=== PATIENT | female | born 1950 | race Caucasian/White ===

== ENCOUNTER 2017-06-28 08:45 | Day surgery (SDC) | payer MEDICARE, BC ==
--- NOTE | 2017-06-28 07:29 | History and Physical Report ---
DATE: 06/27/2017. CHIEF COMPLAINT AND HISTORY OF CHIEF COMPLAINT: This patient presents with a history of multiple spinal surgeries. She is here for a spinal opioid infusion trial with an implanted catheter with hydromorphone due to the failure of all other conservative therapies. No other surgeries were suggested following surgical evaluation with Dr. Lira at [facility], and she was referred for a pump implant. Diagnostics show subluxation at L3-4 and 4-5, multiple laminectomies, and spondylitic change. PAST MEDICAL HISTORY: Hypertension, chronic renal disease. PAST SURGICAL HISTORY: Lumbar spinal surgery, gastric surgery. EMPLOYMENT STATUS: Retired and on disability. MEDICATIONS ON ADMISSION: List to be provided. ALLERGIES: Nonsteroidal anti-inflammatories, sulfa, Inderal, Ancef. Further list to be provided. REVIEW OF SYSTEMS: The patient seems appropriate and in no acute distress. The remainder of the systems review shows degenerative arthritis, headaches, difficulty sleeping. SOCIAL HISTORY: Caffeine. FAMILY HISTORY: Noncontributory. PHYSICAL EXAMINATION: General: Height and weight are not available. Vital Signs: Not available. Musculoskeletal: Current examination shows diffuse tenderness throughout the lumbar spine. Range of motion does produce pain throughout the low back and extending into both lower extremities. Motor and sensory field function is essentially intact. There is a pain pattern which is following both an L4 and L5 distribution into both legs. There are mild motor function deficits and weakness in both legs. Ambulation: Assistive device utilized. Neurologic: Cranial nerves are intact. IMPRESSION: 1. POSTLUMBAR LAMINECTOMY SYNDROME, ICD-10 CODE M96.1. 2. LUMBAR RADICULITIS, ICD-10 CODE M54.16 AND M54.17. PLAN: This patient is here for an implanted spinal catheter infusion trial with hydromorphone or Dilaudid. The patient understands that we will be surgically implanting a spinal catheter. This technique can help minimize the potential for a spinal headache. It could also reduce the number of needle placements into the spine necessary to a single technique in a single procedure. The implanted catheter will be externalized by a second catheter component to an external pump where we will infuse spinal opioids over a two- week period. During this two-week period, or 14 days, three increases will be planned and scheduled if necessary. During the trial an epidural blood patch will be performed to also help control the incidence of a spinal headache. We will consider an overnight stay; although the patient may be a candidate for discharge same day if she is stable. The potential risks, side effects, and complications include nerve root injury, spinal cord injury, paralysis, and spinal headache and have been discussed and reviewed. Information was provided through the railroad surveyor, [employer]. This includes a book that fully explains the procedures and a link to the web site which also discusses the procedure, side effects, and complications. All questions were answered. The patient understands and has consented. JOB NUMBER: [id number] cc: Wendy Cardona M.D. MTDD
[~2017-06-28 08:45] MED LIST: ACETAMINOPHEN 1,000 MG/100 ML BTL IV ONE; CLINDAMYCIN 600MG/50ML PREMIX 600 MG/50 ML BAG IVPB ONE; FAMOTIDINE 20MG TABLET PO ONE; HYDROMORPHONE PF 2MG/ML AMP 0.008 MG in 0.9 % SODIUM CHLORIDE 10ML VIA 0.996 ML IV ONE; HYDROMORPHONE PF 2MG/ML AMP 4 MG in 0.9 % SODIUM CHLORIDE 500ML 498 ML IV ONE; MECLIZINE 25 MG TABLET PO ONE; METOCLOPRAMIDE 10 MG TABLET PO ONE
[2017-06-28] MEDS ORDERED: LIDOCAINE 2% MDV (20MG/ML) 20ML VIAL IV ONE (08:46)
[2017-06-28] MEDS ORDERED: BUPIVACAINE 0.5% W/EPI MPF 30 ML VIAL IVP ONE (08:46)
[2017-06-28] MEDS ORDERED: PROPOFOL 10 MG/ML VIAL IV ONE (08:46)
[2017-06-28] MEDS ORDERED: LIDOCAINE 1% W/EPI 1:200,000 MPF 30ML SQ ONE (08:46)
[2017-06-28] MEDS ORDERED: MIDAZOLAM HCL 2MG/2ML VIAL IV ONE (08:46)
[2017-06-28] MEDS ORDERED: FENTANYL PF 100MCG/2ML VIAL IV ONE ×2 (08:46)
[2017-06-28] MEDS ORDERED: DIPHENHYDRAMINE HCL IV 50 MG/ML VIAL IVP PRN ×2 (12:43)
[2017-06-28] MEDS ORDERED: OXYCODONE/APAP 10MG-325MG TABLET PO PRN (12:43)
[2017-06-28] MEDS ORDERED: SENNOSIDES/DOCUSATE SODIUM UD CAPSULE PO PRN ×2 (12:43)
[2017-06-28] MEDS ORDERED: METOCLOPRAMIDE 10 MG TABLET PO PRN (12:43)
[2017-06-28] MEDS ORDERED: METOCLOPRAMIDE HCL 10 MG/2 ML VIAL IVP PRN (12:43)
[2017-06-28] MEDS ORDERED: NALOXONE 0.4 MG/1 ML VIAL IVP PRN (12:43)
[2017-06-28] MEDS ORDERED: TEMAZEPAM 15 MG CAPSULE PO PRN ×2 (12:43)
[2017-06-28] MEDS ORDERED: HYDROMORPHONE HCL 2 MG/ML VIAL IM PRN ×2 (12:43→12:44)
[2017-06-28] MEDS ORDERED: AL HYDROX/MAG HYDROX 30ML UD PO PRN (12:43)
[2017-06-28] MEDS ORDERED: ACETAMINOPHEN 325 MG TAB PO PRN ×2 (12:43)
[2017-06-28] MEDS ORDERED: HYDROCODONE/APAP 7.5/325 15ML ELIXIR PO PRN ×2 (12:48)
[2017-06-28] MEDS ORDERED: DIPHENHYDRAMINE ELIXIR 25MG/10ML UD PO PRN ×2 (12:49)
[2017-06-28] MEDS ORDERED: [UNRECOGNIZED DRUG - OTHER] PO PRN (13:13)
[2017-06-28] MEDS ORDERED: PROMETHAZINE HCL 25 MG TABLET PO PRN (15:29)
--- NOTE | 2017-06-28 16:35 | Operative Note - Ferro ---
DATE OF SURGERY: 06/28/17 PREOPERATIVE DIAGNOSES: 1. POST LUMBAR LAMINECTOMY SYNDROME, ICD-10 CODE = M96.1. 2. LUMBAR RADICULITIS, ICD-10 CODE = M54.16 AND M54.17. OPERATION: 1. FLUOROSCOPICALLY-GUIDED SPINAL ACCESS AT L3-4. PLACEMENT OF THIN-WALLED SPINAL CATHETER T11. 2. DIAGNOSTIC MYELOGRAPHY WITH RADIOLOGIC SUPERVISION AND INTERPRETATION. 3. SPINAL OPIOID BOLUS HYDROMORPHONE 0.002 MG SPINAL SPACE. 4. INCISION, SUBCUTANEOUS DISSECTION, AND ANCHORING OF SPINAL CATHETER TO SUPRASPINOUS FASCIA WITH AN ANCHOR AND NONABSORBABLE SUTURE. 5. INCISION, SUBCUTANEOUS DISSECTION, AND CREATION OF SMALL POUCH RIGHT POSTERIOR GLUTEAL ROLDAN ULTIMATELY FOR PUMP. 6. TUNNELING BETWEEN MIDLINE POUCH INTO POSTERIOR POUCH TUNNELING SPINAL CATHETER INTO POUCH. SPINAL CATHETER RESECTED, INTERFACED WITH SECOND CATHETER COMPONENT BY WAY OF A CONNECTOR. 7. TUNNELING SECONDARY CATHETER COMPONENT SUPERIOR 6 CM EXITING SKIN. INTERFACE EXTERNAL CATHETER WITH PUMP SET TO DELIVER HYDROMORPHONE AT 0.04 MG A DAY. 8. CLOSURE OF MIDLINE INCISION, VICRYL FOR FASCIA, RUNNING SUBCUTICULAR VICRYL FOR SKIN. CLOSURE OF POSTERIOR POUCH NYLON SUTURE. 9. EPIDURAL BLOOD PATCH AT L5-S1. 20 ML AUTOLOGOUS BLOOD DRAWN STERILE TECHNIQUE , LEFT ANTECUBITAL. SURGEON: CLARE ROSALES D.O. ANESTHESIA: LOCAL SEDATION. ANESTHESIA PROVIDER: BETTY WHITTEN CRNA. INDICATION: This patient presents with a history of a post laminectomy radiculitis. Due to the failure of therapy, she has been referred to this facility for a spinal infusion trial with Hydromorphone using an implanted catheter technique. PROCEDURE: Intravenous line, vital sign monitoring, IV sedation, prepped and draped sterile technique. The spinal interspace with the patient prone. Spinal interspace at L3-4 was marked, infiltrated, and a 20-gauge spinal needle paramedian approach was used to gain entry into the spinal space on AP and lateral imaging. With CSF through the needle, a thin-walled spinal catheter was advanced and positioned T11. Catheter was clamped. The skin above and below the needle infiltrated, incision made, and subcutaneous dissection was conducted to the supraspinous fascia. The needle was removed and the catheter was anchored to the supraspinous fascia with an anchor and nonabsorbable suture. CSF flow continued to come through the catheter once the anchor was in place. The catheter was then clamped to stop CSF leak. With the catheter anchored, 1 mL of contrast was injected and a myelogram flow was identified confirming catheter position and appropriate flow characteristics. There was no pain or response on the part of the patient. The catheter was again clamped. 1 mL of Hydromorphone at 0.002 mg was given into the spinal space and the catheter was clamped a second time. At the right posterior gluteal margin, a site by the patient ultimately picked for the pump itself, was infiltrated, incision made, and subcutaneous dissection was conducted to form a small pouch. The spinal catheter was then tunneled into this posterior pouch. The catheter was then interfaced with a second catheter component by way of a connector. The second catheter component was tunneled superior from this pouch exiting the skin. This external catheter was then interfaced with an external infusion pump, which was set to deliver Hydromorphone at 0.04 mg a day. The midline incision was closed Vicryl for fascia, running subcuticular Vicryl for skin. The posterior gluteal incision was closed with a nylon suture. At L4-5, the epidural space could not be accessed. At L5-S1, using an 18-gauge Tuohy needle with [id number], the epidural space was accessed. 20 mL of autologous blood drawn sterile technique from the left antecubital, placed onto the field maintaining sterility , then an epidural blood patch was performed at this level with this blood. Dressing was applied securing the catheter and all connections under sterile dressing. Dermabond then placed over the midline incision. She was transported to the Recovery Room flat, pillow under head and knees, stable, showing no side- effects from, the procedure or the sedation. In the Recovery Room, the patient had functionality of all extremities and showed no indications of complications. She was monitored until stable, transported to the Floor for observation, and she will be kept flat for four hours, slowly elevated for one, but will be kept overnight for observation and discharged in the morning. DISCHARGE INSTRUCTIONS IN THE MORNIN. Sites to remain clean and dry. No showering or bathing in any way that would disrupt dressings. If it happens, contact the clinic. 2. Standard medications resumed including the antibiotic, oral, because of a gastric bypass, that she will tolerate. Pharmacy will help in a selection of the oral antibiotic for the next 10-14 days; appropriate for the procedure. 3. Spinal opioid side-effects; respiratory depression, nausea, vomiting, constipation, urinary retention, light-headedness, or rash have all been discussed and reviewed. Should they happen, the patient can contact the clinic or she has been instructed on how to turn off the pump. The trial was scheduled to run 12-14 days. During this period of time, three increases will be scheduled to increase the infusion to the desired level to control pain. All other instructions have been provided. The dressings will stay dry. No showering or bathing in any way that would compromise dressings. The externalized catheter should be monitored carefully to prevent any dislodge or separation from the external pump. She will be seen in the office in 3-5 days. All other instructions provided, numbers to contact, problems given. She was then prepared for discharge in the morning. cc: Dr. Chris Lira at [facility] Dr. Frank Kelly JOB NUMBER: [id number] MTDD
[2017-06-28] MEDS: OXYCODONE/APAP 10MG-325MG TABLET PO PRN ×2 (16:54→21:37)
[2017-06-28] MEDS: CLINDAMYCIN 600MG/50ML PREMIX 600 MG/50 ML BAG IVPB SCH (18:43)
[2017-06-28] MEDS ORDERED: AMITRIPTYLINE 10 MG TAB PO SCH (22:00)
[2017-06-28] MEDS ORDERED: TRAZODONE 50 MG TABLET PO SCH (22:00)
[2017-06-28] MEDS ORDERED: LISINOPRIL 10 MG TABLET PO SCH (22:00)
[2017-06-29] MEDS: CLINDAMYCIN 600MG/50ML PREMIX 600 MG/50 ML BAG IVPB SCH ×2 (02:13→09:31)
[2017-06-29] MEDS: 0.9 % SODIUM CHLORIDE 1000ML 1,000 ML IV SCH ×2 (05:40→09:33)
[2017-06-29] MEDS: OXYCODONE/APAP 10MG-325MG TABLET PO PRN (06:40)
[2017-06-29] MEDS ORDERED: LEVOTHYROXINE SODIUM 75 MCG TABLET PO SCH (07:00)
[2017-06-29] MEDS ORDERED: SERTRALINE HCL 50 MG TABLET PO SCH (10:00)
[2017-06-29] MEDS ORDERED: AMLODIPINE BESYLATE 5MG TAB PO SCH (10:00)
--- NOTE | 2017-06-29 13:05 | RADIOLOGY REPORT ---
EXAM: THORACOLUMBAR SPINE, ONE VIEW HISTORY: PAIN PUMP TRIAL. TECHNIQUE: An AP view of the spine was obtained including the lumbar portion and the lower thoracic portion. Comparison: Same day intraoperative radiographs of the lumbar spine. FINDINGS: There are five non-rib bearing lumbar type vertebra. There is normal bone mineralization. Minor levoconvex curvature is noted centered at the L3 level. Multilevel degenerative disk/end plate changes are present most pronounced at the lower lumbar levels where they are mild to moderate in degree. An intraspinal catheter is in place appearing to extend into the spinal canal at the L3-L4 level and the catheter tip projects at the T11 level. Surgical clips project at the level of the right hemipelvis and right upper quadrant. IMPRESSION: 1. SINGLE INTRASPINAL CATHETER IN PLACE APPEARING TO ENTER THE SPINAL CANAL AT THE L3-L4 LEVEL AND THE CATHETER TIP PROJECTS AT THE T11 LEVEL RIGHT OF MIDLINE. 2. MULTILEVEL DEGENERATIVE CHANGES. 3. NOT MENTIONED ABOVE IS A ROUNDED CALCIFIC DENSITY PROJECTING AT THE LEFT PARAVERTEBRAL L2 LEVEL. THIS MEASURES 5 MM. THIS CANNOT BE FURTHER CHARACTERIZED. A URETERAL CALCULUS WOULD BE DIFFICULT TO EXCLUDE. JOB NUMBER: [id number] [facility]
== END 2017-06-29 10:40 | disposition home or self-care (01) ==
LOC: SUR 08:45 → MEDSURG 12:13 → SUR 06-29 10:40
PROVIDERS: ATTEND Pain Medicine Interventional Pain Medicine
DX: M96.1 Postlaminectomy syndrome, not elsewhere classified (principal); M54.16 Radiculopathy, lumbar region; M54.17 Radiculopathy, lumbosacral region; E03.9 Hypothyroidism, unspecified; I10 Essential (primary) hypertension; Z79.01 Long term (current) use of anticoagulants; N18.5 Chronic kidney disease, stage 5; Z99.2 Dependence on renal dialysis
CPT/HCPCS: 62350; 00630; 85002; 72020; 94760; Q9967; J3010; J3490; J1170; J7040

== ENCOUNTER 2017-07-12 13:12 | Day surgery (SDC) | payer MEDICARE, BC ==
--- NOTE | 2017-07-12 09:35 | History and Physical - Ferro ---
CHIEF COMPLAINT/HISTORY OF CHIEF COMPLAINT: This patient presents with a history of post laminectomy radiculitis with an implanted spinal catheter infusion trial with Hydromorphone. Although the patient achieved significant results she developed a rash approximately two to three days into the trial, this was discontinued and despite the rash accelerated and worsening her primary physician recommended that this was opioid related and the device should be removed. PAST MEDICAL HISTORY: Hypertension and chronic renal disease with dialysis. PAST SURGICAL HISTORY: Lumbar spinal surgery and gastric surgery. EMPLOYMENT STATUS: Disability. MEDICATIONS ON ADMISSION: List to be provided. ALLERGIES: NONSTEROIDAL INFLAMMATORIES, SULFA, INDERAL, AND ANCEF. FAMILY/PSYCHOSOCIAL HISTORY: Social history - Positive for caffeine. Family history - Noncontributory. SYSTEMS REVIEW: The patient is appropriate in no acute distress. The remainder of the systems review is positive for degenerative arthritis and difficulty sleeping. PHYSICAL EXAMINATION: Height is 5'4", weight is 150. No vital signs. HEENT: Within normal limits. LUNGS: Clear. HEART: Regular rate and rhythm. MUSCULOSKELETAL: Diffuse maculopapular rash identified total body. Dressings for the implanted catheter trial are intact. NEUROLOGIC: Cranial nerves are intact. Primary pain pattern bilateral lower extremity radiculitis. IMPRESSION: 1. POST LUMBAR LAMINECTOMY SYNDROME, ICD-10 CODE M96.1. 2. LUMBAR RADICULITIS, ICD-10 CODE M54.16 AND M54.17. 3. IMPLANTED SPINAL CATHETER INFUSION TRIAL WITH HYDROMORPHONE. PLAN: Pain control is excellent with a rash although I do not I believe it was related to the opioid the current recommendation has been to remove the device. She is here for removal and termination of the trial. Once the system is removed and the rash is controlled we will re-evaluate repeating the trial. The procedure will be considered outpatient, no overnight stay should be necessary. JOB NUMBER: [id number] MTDD
[~2017-07-12 13:12] MED LIST changes: -HYDROMORPHONE PF 2MG/ML AMP 0.008 MG in 0.9 % SODIUM CHLORIDE 10ML VIA 0.996 ML IV ONE; -HYDROMORPHONE PF 2MG/ML AMP 4 MG in 0.9 % SODIUM CHLORIDE 500ML 498 ML IV ONE
[2017-07-12] MEDS ORDERED: FENTANYL PF 100MCG/2ML VIAL IV ONE (13:13)
[2017-07-12] MEDS ORDERED: MIDAZOLAM HCL 2MG/2ML VIAL IV ONE (13:13)
[2017-07-12] MEDS ORDERED: LIDOCAINE 1% W/EPI 1:200,000 MPF 30ML SQ ONE (13:13)
[2017-07-12] MEDS ORDERED: BUPIVACAINE 0.5% W/EPI MPF 30 ML VIAL IVP ONE (13:13)
[2017-07-12] MEDS ORDERED: CLINDAMYCIN (PEDIATRIC DOSING) 150 MG/ML VIAL IVPB ONE ×2 (13:13)
[2017-07-12] MEDS ORDERED: PROPOFOL 10 MG/ML VIAL IV ONE (13:13)
[2017-07-12] MEDS ORDERED: LIDOCAINE 2% MDV (20MG/ML) 20ML VIAL IV ONE (13:13)
[2017-07-12 13:35] LABS: CREATININE 3.2 mg/dL (0.5-0.9)
--- NOTE | 2017-07-13 16:19 | Operative Note - Ferro ---
DATE OF SURGERY: 07/12/17 PREOPERATIVE DIAGNOSES: 1. POST LUMBAR LAMINECTOMY SYNDROME, ICD-10 CODE = M96.1. 2. LUMBAR RADICULITIS, ICD-10 CODE = M54.16 AND M54.17. 3. IMPLANTED SPINAL CATHETER INFUSION TRIAL HYDROMORPHONE WITH RASH AND SIDE- EFFECTS. OPERATION: FLUOROSCOPICALLY-GUIDED INCISION, SUBCUTANEOUS DISSECTION, AND REMOVAL OF INDWELLING SPINAL CATHETER. SURGEON: CLARE ROSALES D.O. ANESTHESIA: LOCAL SEDATION. ANESTHESIA PROVIDER: MARIA A HILL CRNA INDICATION: This patient presents with a history of post lumbar laminectomy radiculitis with an ongoing implanted spinal catheter infusion trial Hydromorphone. Despite 50-75% pain control, on roughly day #3, she developed a near total body rash. The infusion was stopped. The antibiotic was changed out of concern that these elements were involved but no measures that were undertaken stopped the rash, in fact the rash accelerated in its severity and its total body involvement. She saw her primary physician who felt this was related to the Dilaudid and suggested we remove the device. She is here for removal of the catheter. PROCEDURE: Intravenous line, vital sign monitoring, IV sedation, prepped and draped with sterile technique. Patient position prone. Sterile prep. Sterile technique. The previous incision for the implanted catheter infiltrated, incision made, and subcutaneous dissection was conducted to the anchor. Sutures cut. A pursestring suture placed around the catheter penetration. Catheter was remove and the pursestring tightened to stop CSF leak. At the right posterior gluteal margin pouch for the interface between external and internal catheter, skin infiltrated, incision made, and subcutaneous dissection was conducted to the connection. The catheter connection was cut. The externalized catheter removed, and the remaining indwelling catheter removed. Antibiotic irrigation and Bovie for hemostasis. Both incisions were closed Vicryl for fascia, running subcuticular Vicryl for skin. Dermabond closure. She was transported to the Recovery Room stable. No side-effects from the procedure or the sedation. DISCHARGE INSTRUCTIONS: 1. Sites remain clean and dry although the Dermabond will allow showering. She should not sit in tubs. 2. Standard medications resumed. Because of specific requirements for antibiotics, her antibiotic, Amoxicillin, 500 mg liquid has been called to her pharmacy. She will take one dose a day for 14-20 days depending upon dialysis. Dialysis will increase the requirement from 14 days to possibly 20 days total. Again, depending upon the number of the dialysis treatments. All other instructions were provided. The office will contact the patient to set up an evaluation at home so we can look and evaluate the sites. All other instructions provided, numbers to contact, problems given. She was then discharged. cc: - Dr. Ross Lira, Neurosurgeon [facility] - Dr. Keshav Martinez JOB NUMBER: [id number] [facility]
== END 2017-07-12 17:15 | disposition home or self-care (01) ==
LOC: SUR 13:12
PROVIDERS: ATTEND Pain Medicine Interventional Pain Medicine
DX: T40.2X5A Adverse effect of other opioids, initial encounter (principal); M54.16 Radiculopathy, lumbar region; M54.17 Radiculopathy, lumbosacral region; I10 Essential (primary) hypertension; N19 Unspecified kidney failure
CPT/HCPCS: 62355; 00300; 80048; J3010

== ENCOUNTER 2017-11-22 10:30 | Day surgery (SDC) | payer MEDICARE, BC ==
--- NOTE | 2017-11-22 06:49 | History and Physical Report ---
DATE: 11/22/2017. CHIEF COMPLAINT AND HISTORY OF CHIEF COMPLAINT: This patient presents with a history of an intractable postlumbar laminectomy syndrome. Due to the failure of therapy, she is here for an implanted spinal catheter infusion trial with hydromorphone to determine if the implantation of a permanent system can be of any value in pain control. PAST MEDICAL HISTORY: Hypertension, chronic renal disease. PAST SURGICAL HISTORY: Lumbar spinal surgery, gastric surgery. MEDICATIONS ON ADMISSION: To be provided. ALLERGIES: Nonsteroidal anti-inflammatories, sulfa, Inderal, Ancef. SOCIAL HISTORY: Caffeine. FAMILY HISTORY: Noncontributory. REVIEW OF SYSTEMS: The patient is appropriate and in no acute distress. The remainder of the systems review shows degenerative arthritis, difficulty sleeping. PHYSICAL EXAMINATION: General: Height and weight unavailable. Vital Signs: Not available. HEENT: Within normal limits. Lungs: Clear. Heart: Regular rate and rhythm. Abdomen: Nontender. Musculoskeletal: Examination of the musculoskeletal system shows diffuse tenderness throughout the lumbar spine. Range of motion does produce pain throughout the low back and extending into both legs. Motor and sensory field function shows generalized weakness and pain in both lower extremities. Neurologic: Cranial nerves are intact. IMPRESSION: 1. POSTLUMBAR LAMINECTOMY SYNDROME, ICD-10 CODE M96.1. 2. RADICULOPATHY, ICD-10 CODE M54.16 AND M54.17. PLAN: The patient is here for an implanted spinal catheter infusion trial with hydromorphone to determine if the implantation of a permanent system can be of any value in pain control. The procedure will involve the surgical implantation of a spinal catheter. An epidural blood patch will be performed in combination with this to assist in reducing the incidents of a spinal headache. The potential risks, side effects, and complications have been carefully reviewed and discussed. These include nerve root injury, spinal cord injury, and paralysis. The procedure will be considered outpatient, although an overnight stay will be evaluated. JOB NUMBER: [id number] cc: Wendy Peterson M.D. MTDD
[~2017-11-22 10:30] MED LIST changes: +HYDROMORPHONE PF 2MG/ML AMP 0.008 MG in 0.9 % SODIUM CHLORIDE 10ML VIA 0.996 ML IV ONE; +HYDROMORPHONE PF 2MG/ML AMP 8 MG in 0.9 % SODIUM CHLORIDE 500ML 496 ML IV ONE
[2017-11-22] MEDS ORDERED: PROPOFOL 10 MG/ML VIAL IV ONE (10:31)
[2017-11-22] MEDS ORDERED: BUPIVACAINE 0.5% W/EPI MPF 30 ML VIAL IVP ONE (10:31)
[2017-11-22] MEDS ORDERED: CLINDAMYCIN (PEDIATRIC DOSING) 150 MG/ML VIAL IVPB ONE (10:31)
[2017-11-22] MEDS ORDERED: MIDAZOLAM HCL 2MG/2ML VIAL IV ONE (10:31)
[2017-11-22] MEDS ORDERED: LIDOCAINE 1% MDV (10MG/ML) 20ML VIAL SQ ONE (10:31)
[2017-11-22] MEDS ORDERED: LIDOCAINE 1% W/EPI 1:200,000 MPF 30ML SQ ONE (10:31)
[2017-11-22] MEDS ORDERED: FENTANYL PF 100MCG/2ML VIAL IV ONE (10:31)
[2017-11-22] MEDS ORDERED: HYDROCODONE/APAP 7.5/325MG TABLET PO PRN ×2 (14:36)
[2017-11-22] MEDS ORDERED: DIPHENHYDRAMINE HCL 50 MG/ML VIAL IVP PRN ×2 (14:36)
[2017-11-22] MEDS ORDERED: RINGERS SOLUTION,LACTATED 1,000 ML IV SCH (14:36)
[2017-11-22] MEDS ORDERED: METOCLOPRAMIDE 10 MG TABLET PO PRN (14:36)
[2017-11-22] MEDS ORDERED: METOCLOPRAMIDE HCL 10 MG/2 ML VIAL IVP PRN (14:36)
[2017-11-22] MEDS ORDERED: SENNOSIDES/DOCUSATE SODIUM UD CAPSULE PO PRN ×2 (14:36)
[2017-11-22] MEDS ORDERED: HYDROMORPHONE HCL 2 MG/ML VIAL IM PRN ×2 (14:36)
[2017-11-22] MEDS ORDERED: TEMAZEPAM 15 MG CAPSULE PO PRN ×2 (14:36)
[2017-11-22] MEDS ORDERED: DIPHENHYDRAMINE HCL 25 MG CAPSULE PO PRN ×2 (14:36)
[2017-11-22] MEDS ORDERED: AL HYDROX/MAG HYDROX 30ML UD PO PRN (14:36)
[2017-11-22] MEDS ORDERED: ACETAMINOPHEN 325 MG TAB PO PRN ×2 (14:36)
[2017-11-22] MEDS ORDERED: OXYCODONE/APAP 10MG-325MG TABLET PO PRN (14:36)
[2017-11-22] MEDS ORDERED: CALCIUM ACETATE 667 MG PO PRN (14:41)
[2017-11-22] MEDS ORDERED: NALOXONE 0.4 MG/1 ML VIAL IVP PRN (15:47)
--- NOTE | 2017-11-22 18:44 | Operative Note - Ferro ---
DATE OF SURGERY: 11/22/17 PREOPERATIVE DIAGNOSES: POST LUMBAR LAMINECTOMY SYNDROME, ICD-10 CODE = M96.1 WITH RADICULOPATHY, ICD-10 CODE = M54.16 AND M54.17. OPERATION: 1. FLUOROSCOPICALLY-GUIDED SPINAL ACCESS AT L3-4, PLACEMENT OF THIN-WALLED SPINAL CATHETER T11. 2. NO MYELOGRAM BECAUSE OF CONTRAST ALLERGY, SALINE INJECTED ASPIRATED, CLEAR PATENCY CSF NOTED. 3. SPINAL OPIOID BOLUS HYDROMORPHONE, 0.004 MG. 4. INCISION, SUBCUTANEOUS DISSECTION, AND ANCHORING OF SPINAL CATHETER TO SUPRASPINOUS FASCIA WITH ANCHORING DEVICE AND NONABSORBABLE SUTURE. 5. INCISION, SUBCUTANEOUS DISSECTION, AND CREATION OF SUBCUTANEOUS POUCH, RIGHT POSTERIOR GLUTEAL MARGIN. 6. TUNNELING BETWEEN MIDLINE SPINAL CATHETER POUCH AND LATERAL RIGHT FLANK POUCH TUNNELING SPINAL CATHETER INTO GLUTEAL POUCH. INTERFACE SPINAL CATHETER WITH SECOND CATHETER COMPONENT BY WAY OF CONNECTOR. 7. TUNNELING SECOND CATHETER COMPONENT SUPERIOR EXITING THE SKIN FROM FLANK POUCH 6 CM. 8. INTERFACE EXTERNAL CATHETER WITH EXTERNAL INFUSION PUMP SET TO DELIVER HYDROMORPHONE AT 0.08 MG A DAY. 9. CLOSURE OF MIDLINE INCISION, VICRYL FOR FASCIA, AND RUNNING SUBCUTICULAR NYLON FOR SKIN. CLOSURE OF POSTERIOR GLUTEAL POUCH WITH RUNNING NYLON. 10. EPIDURAL BLOOD PATCH AT L4-5 WITH 18 TUOHY. 20 ML AUTOLOGOUS BLOOD DRAWN STERILE TECHNIQUE, LEFT ANTECUBITAL. 11. PATIENT TRANSPORTED TO RECOVERY ROOM FLAT, PILLOW UNDER HEAD AND KNEES. STABLE. NO SIDE-EFFECTS FROM THE PROCEDURE OR THE SEDATION. FULL FUNCTIONALITY OF EXTREMITIES. NO UNUSUAL PAIN. SURGEON: CLARE ROSALES D.O. ANESTHESIA: LOCAL SEDATION. ANESTHESIA PROVIDER: MARIA A HILL CRNA. INDICATION: This patient with a post lumbar laminectomy radiculopathy is here for an implanted spinal catheter infusion trial Hydromorphone to determine if the implantation of a permanent system would be of any value in pain control. PROCEDURE: Intravenous line, vital sign monitoring, IV sedation, prepped and draped in sterile technique. Under imaging, the spinal interspace at L3-4 was marked, infiltrated and a 20-gauge spinal needle paramedian approach beveled with a long axis was inserted into the spinal space. Imaging with AP and lateral views was done for procedure. Needle advanced only on the lateral image. With CSF flow, a thin-walled spinal catheter was advanced positioned T11. Because of contrast allergies and chronic renal disease, no contrast was used. Saline injected and aspirated; there were no obstructions. CSF continued to be noted. A thin-walled spinal catheter was advanced through the needle positioned T11. Contrast still noted through the catheter. The needle was slightly retracted to stop CSF leak and then the skin above and below the needle infiltrated, incision made, and subcutaneous dissection was conducted to the supraspinous fascia. The needle was removed and the catheter was anchored to the supraspinous fascia with a locking anchor and nonabsorbable suture. CSF still noted through the catheter. At the right posterior gluteal margin, a site picked by the patient ultimately for the pump, skin infiltrated, incision made, and subcutaneous dissection was conducted to form a pouch of suitable size and depth. a tunneling tool was then used to carry the catheter into the right posterior pouch and then this spinal catheter was interfaced with a second catheter component by way of a connector. The second catheter component was tunneled 6 cm superior to this lateral pouch. The externalized catheter was then interfaced to an external pump set to deliver Hydromorphone at 0.08 mg a day. The midline incision was closed with Vicryl for fascia and a running nylon for skin. The posterior pouch was closed with Vicryl for fascia and a running nylon for skin. At L4-5, which was one level below the dural puncture, skin infiltrated then an 18-gauge Tuohy needle was used to access the epidural space. 20 mL of autologous blood was drawn sterile technique from the left antecubital and placed onto the field. This blood was used to perform a blood patch at this level. Needle removed. The dressings were reinforced. Sterile dressing covering the incisions and catheter as well as all interface connections with the catheter. She was then turned supine and transported flat to the Recovery Room, pillow under head and knees. Stable. No side-effects from the procedure. Full functionality of the extremities was noted. She will be kept overnight for observation and she will stay flat for four hours, slowly elevated for one, and then be discharged in the morning. Potential side-effects from the spinal opioids; respiratory depression, nausea, vomiting, constipation , urinary retention, lightheadedness, or rash have all been discussed and reviewed. She will be discharged in the morning. cc: Dr. Lira - Neurosurgery [facility]. Dr. Keshav Kelly JOB NUMBER: [id number] MTDD
[2017-11-22] MEDS: CLINDAMYCIN 600MG/50ML PREMIX 600 MG/50 ML BAG IVPB SCH (19:41)
[2017-11-22] MEDS ORDERED: AMITRIPTYLINE 10 MG TAB PO SCH (22:00)
[2017-11-22] MEDS ORDERED: LISINOPRIL 5 MG TABLET PO SCH (22:00)
[2017-11-22] MEDS ORDERED: TRAZODONE 50 MG TABLET PO SCH (22:00)
[2017-11-22] MEDS: OXYCODONE/APAP 10MG-325MG TABLET PO PRN (22:01)
[2017-11-23] MEDS: CLINDAMYCIN 600MG/50ML PREMIX 600 MG/50 ML BAG IVPB SCH (03:48)
[2017-11-23] MEDS: OXYCODONE/APAP 10MG-325MG TABLET PO PRN (06:03)
[2017-11-23] MEDS ORDERED: LEVOTHYROXINE SODIUM 75 MCG TABLET PO SCH (07:00)
[2017-11-23] MEDS ORDERED: SERTRALINE HCL 50 MG TABLET PO SCH (10:00)
[2017-11-23] MEDS ORDERED: AMLODIPINE BESYLATE 5MG TAB PO SCH (10:00)
--- NOTE | 2017-11-24 07:38 | RADIOLOGY REPORT ---
DATE: 11/23/2017. EXAM: THORACIC SPINE. HISTORY: Stimulator lead tip placement. TECHNIQUE: Single AP view of the thoracic spine was performed. FINDINGS: The lead tip appears to be at the T11-12 level. IMPRESSION: THE LEAD TIP APPEARS TO BE AT THE T11-12 LEVEL. JOB NUMBER: [id number] MTDD
== END 2017-11-23 08:05 | disposition home or self-care (01) ==
LOC: SUR 10:30 → MEDSURG 13:50 → SUR 11-23 08:05
PROVIDERS: ATTEND Pain Medicine Interventional Pain Medicine
DX: M96.1 Postlaminectomy syndrome, not elsewhere classified (principal); M54.16 Radiculopathy, lumbar region; M54.17 Radiculopathy, lumbosacral region; I10 Essential (primary) hypertension; Z79.01 Long term (current) use of anticoagulants; N18.9 Chronic kidney disease, unspecified
CPT/HCPCS: 72020; J1170; J7040

== ENCOUNTER 2017-12-06 08:44 | Day surgery (SDC) | payer MEDICARE, BC ==
--- NOTE | 2017-12-06 04:11 | History and Physical Report ---
DATE: 12/05/2017. CHIEF COMPLAINT AND HISTORY OF CHIEF COMPLAINT: This patient presents with a history of postlaminectomy radiculopathy. She has an ongoing implanted spinal catheter infusion trial with hydromorphone. At this point she has achieved greater than 75 percent pain control with a basal infusion rate over 24 hours at 0.15 mg a day. Due to the failure of all therapies and the success of the implanted catheter trial, she is here by her request for permanent implant. PAST MEDICAL HISTORY: Hypertension, chronic renal disease. PAST SURGICAL HISTORY: Lumbar spinal surgery, gastric surgery, fistula. MEDICATIONS ON ADMISSION: To be provided. ALLERGIES: Nonsteroidal anti-inflammatories, sulfa, Inderal, Ancef. SOCIAL HISTORY: Caffeine. FAMILY HISTORY: Noncontributory. REVIEW OF SYSTEMS: The patient is appropriate and in no acute distress. The remainder of the systems review shows degenerative arthritis, difficulty sleeping. PHYSICAL EXAMINATION: General: Height and weight unavailable. Vital Signs: Not available. HEENT: Within normal limits. Lungs: Clear. Heart: Regular rate and rhythm. Abdomen: Nontender. Musculoskeletal: Examination of the musculoskeletal system shows the dressings for the implanted catheter trial are all intact. The pump is externalized with the interfacing catheters identified. The pump is functioning properly. The underlying pain pattern is postlaminectomy, back, hip, and leg bilaterally. Neurologic: Cranial nerves are intact. IMPRESSION: 1. POSTLUMBAR LAMINECTOMY SYNDROME, ICD-10 CODE M96.1. 2. RADICULOPATHY, ICD-10 CODE M54.16 AND M54.17. 3. IMPLANTED SPINAL CATHETER INFUSION TRIAL WITH HYDROMORPHONE. PLAN: We have achieved greater than 75 percent pain control. She is here for implantation of a permanent system. We will consider this component of the procedure outpatient, although an overnight stay can be evaluated. JOB NUMBER: [id number] cc: Wendy Peterson M.D. MTDD
[~2017-12-06 08:44] MED LIST changes: +HYDROMORPHONE HCL 0.04 GM in 0.9 % SODIUM CHLORIDE 10ML VIA 20 ML IV ONE; -HYDROMORPHONE PF 2MG/ML AMP 8 MG in 0.9 % SODIUM CHLORIDE 500ML 496 ML IV ONE
[2017-12-06] MEDS ORDERED: FENTANYL PF 100MCG/2ML VIAL IV ONE (08:45)
[2017-12-06] MEDS ORDERED: MIDAZOLAM HCL 2MG/2ML VIAL IV ONE (08:45)
[2017-12-06] MEDS ORDERED: HYDROMORPHONE HCL 2 MG/ML VIAL IV ONE (08:45)
[2017-12-06] MEDS ORDERED: PROPOFOL 10 MG/ML VIAL IV ONE (08:45)
[2017-12-06] MEDS ORDERED: LIDOCAINE 1% MDV (10MG/ML) 20ML VIAL SQ ONE (08:45)
[2017-12-06] MEDS ORDERED: CLINDAMYCIN (PEDIATRIC DOSING) 150 MG/ML VIAL IVPB ONE (08:45)
[2017-12-06] MEDS ORDERED: LIDOCAINE 1% W/EPI 1:200,000 MPF 30ML SQ ONE (08:45)
[2017-12-06] MEDS ORDERED: OXYCODONE/APAP 10MG-325MG TABLET PO ONE (08:45)
[2017-12-06] MEDS ORDERED: *PACU ONLY* KETAMINE HCL 10 MG/ML (20ML) VIAL IV ONE (08:45)
[2017-12-06] MEDS ORDERED: BUPIVACAINE 0.5% W/EPI MPF 30 ML VIAL IVP ONE (08:45)
--- NOTE | 2017-12-07 15:37 | Operative Note ---
DATE: 12/06/2017. PREOPERATIVE DIAGNOSES: 1. POSTLUMBAR LAMINECTOMY SYNDROME, ICD-10 CODE M96.1. 2. LUMBAR RADICULOPATHY, ICD-10 CODE M54.16 AND M54.17. 3. IMPLANTED SPINAL CATHETER INTRASPINAL HYDROMORPHONE TRIAL. ANESTHESIA: Local sedation. ANESTHESIA PROVIDER: Lyndon Obrien CRNA. PROCEDURES: 1. Fluoroscopically guided incision, subcutaneous dissection, and removal of external catheter. 2. Incision, subcutaneous dissection, and revision of indwelling spinal catheter. Interface catheter with second catheter component by way of connector. 3. Incision, subcutaneous dissection, and widening of pouch at right posterior gluteal margin subcutaneously to accommodate pump identified as Medtronic 20 mL programmable placed onto the field prefilled with hydromorphone 1.0 mg per mL. 4. Interface revised spinal catheter to pump. Placement of pump into right posterior gluteal margin pouch, securing to fascia with nonabsorbable suture at three points with pump eyelets, anchoring pump to fascia. 5. Placement of curved 24-gauge Salmeron needle into access port aspirating and clearing catheter of opioid and cerebrospinal fluid mixture. Injection of 3.0 mL of preservative-free saline through access port into catheter confirming functionality under imaging. Catheter tip identified at T12-L1. 6. Closure of incision with Vicryl for the fascia and running subcuticular Vicryl for the skin. Dermabond closure. SURGEON: Warren Bolaños D.O. ANESTHESIA: Local sedation. ANESTHESIA PROVIDER: Lyndon Obrien CRNA. INDICATIONS: This is a patient with an implanted spinal catheter infusion trial with hydromorphone. She is here for permanent implant. She has achieved greater than 75 percent pain control. Due to the failure of all therapies and the success of the implanted catheter trial, she is here for permanent implant. DESCRIPTION OF PROCEDURE: Intravenous lines, vital sign monitoring, and intravenous sedation by Anesthesia. The patient was positioned prone. Sterile prep and sterile technique. At a small subcutaneous pouch formed at the right posterior gluteal margin, the skin was infiltrated. An incision was made and subcutaneous dissection was conducted to identify the interface between the external and the internal catheter. The interface connection was cut, and the external catheter was removed, pulling away from the incision. The indwelling spinal catheter was then revised and resected with a second catheter component by was of a connector. A 20 mL programmable Medtronic pump prefilled with hydromorphone at 1.0 mg per mL was then placed onto the field. This pump was interfaced with the revised catheter. A pouch was then formed at the posterior gluteal margin site to accommodate the pump. Antibiotic irrigation and Bovie for hemostasis. The pump was placed into the pouch and secured to the posterior fascia with nonabsorbable suture at three points with pump eyelets. The pump was then placed into the pouch and secured to the fascia with a nonabsorbable suture. A curved 24-gauge Salmeron needle was inserted into the access port, and 1.0 mL of catheter contents was aspirated, clearing the catheter of opioid and cerebrospinal fluid mixture. A 24-gauge Salmeron needle was then inserted into the access port, and 3.0 mL of preservative-free saline was injected confirming functionality and patency. With the pump in the pouch, the incision was closed with Vicryl for the fascia and running subcuticular Vicryl for the skin. Dermabond closure. The pump was then programmed to deliver by continuous infusion hydromorphone at 0.3 mg a day. With the Dermabond in place, she was transported to the recovery room stable with no side effects from the procedure or the sedation. When fully awake and alert, she will be prepared for discharge. DISCHARGE INSTRUCTIONS: 1. The sites are to remain clean and dry. No showering or bathing for the first 24 hours. She may shower with the Dermabond. Do not pull the Dermabond off and do not sit in water. 2. Standard medications to be resumed including continuing the Levaquin 500 mg for another seven days. 3. The office is to contact the patient at home to set up the evaluation to check the sites in seven to ten days. Until then her activities should stay low. 4. Spinal opioid side effects including respiratory depression, nausea, vomiting, constipation, urinary retention, lightheadedness, and rash have all been discussed and reviewed. 5. All other instructions were provided including numbers to contact with problems. She was then prepared for discharge. JOB NUMBER: [id number] cc: Wendy Peterson M.D. MTDD
== END 2017-12-06 14:10 | disposition home or self-care (01) ==
LOC: SUR 08:44
PROVIDERS: ATTEND Pain Medicine Interventional Pain Medicine
DX: M96.1 Postlaminectomy syndrome, not elsewhere classified (principal); M54.16 Radiculopathy, lumbar region; M54.17 Radiculopathy, lumbosacral region; I10 Essential (primary) hypertension; N19 Unspecified kidney failure; E03.9 Hypothyroidism, unspecified
CPT/HCPCS: 62367; C1755; J1170